=== PATIENT | female | born 1995 | race Caucasian/White ===

== ENCOUNTER 2020-09-19 11:50 | Emergency (ER) | payer BC, OTHER ==
[2020-09-19 12:36] VITALS: BP 117/69; PULSE 84
[2020-09-19] MEDS ORDERED: Sodium Chloride 0.9% 1,000 ML IV ONE (12:36)
[2020-09-19] MEDS ORDERED: Ondansetron 4 MG in Sodium Chloride 0.9% 50 ML IV ONE (12:37)
[2020-09-19] MEDS ORDERED: Morphine 2 MG/ML SYRINGE IVPUSH ONE (12:37)
--- NOTE | 2020-09-19 13:01 | EDM.PDOC ---
ED HPI GENERAL MEDICAL PROBLEM - General Chief Complaint: Gastrointestinal Problem Stated Complaint: GASTRIC ISSUES WITH BYPASS Time Seen by Provider: 09/19/20 12:58 Source of Information: Reports: Patient, Family History Limitations: Reports: No Limitations - History of Present Illness INITIAL COMMENTS - FREE TEXT/NARRATIVE: Patient is an unfortunate 24-year-old female who presents emergency department today with complaint of epigastric mark pain and vomiting. The patient reports that she had gastric bypass in July in [place], she reports that she started having problems with vomiting 1 week ago, she was seen at the hospital in [place] on Sunday of last week was admitted for 4 days had an EGD and had a stricture expanded via balloon, patient reports she got to feeling better was tolerating p.o. fluids well days ago and then yesterday she started vomiting again and has been unable to keep any food or fluids down. This concerned the patient and family as they were here on vacation they called her surgeon who recommended they come to the emergency department for further evaluation. The patient does have a flight to [facility] tomorrow to see her surgeon is had no fever no chills no diarrhea no hematemesis no hematochezia no dysuria no frequency no urgency Abdomen Pain Score (Numeric/FACES): 8 - Related Data Allergies Allergy/AdvReac Type Severity Reaction Status Date / Time No Known Allergies Allergy Verified 11/06/18 09:21 Home Meds: Home Meds Amoxicillin 500 mg PO TID 11/06/18 [History] Past Medical History - Past Health History Medical/Surgical History: Denies Medical/Surgical History Psychiatric History: Reports: Anxiety Endocrine/Metabolic History: Reports: Obesity/BMI 30+ - Past Surgical History Head Surgeries/Procedures: Reports: None GI Surgical History: Reports: Other (See Below) Other GI Surgeries/Procedures: Gastric sleeve 07/2020. Social & Family History - Family History Family Medical History: No Pertinent Family History - Tobacco Use Tobacco Use Status *Q: Never Tobacco User - Caffeine Use Caffeine Use: Reports: None - Recreational Drug Use Recreational Drug Use: No ED ROS GENERAL - Review of Systems Review Of Systems: See Below Constitutional: Denies: Fever, Chills GI/Abdominal: Reports: Abdominal Pain, Nausea, Vomiting. Denies: Decreased Appetite, Hematemesis, Hematochezia ED EXAM, GI/ABD - Physical Exam Exam: See Below Exam Limited By: No Limitations General Appearance: Alert, WD/WN, Mild Distress Ears: Normal External Exam, Normal Canal, Hearing Grossly Normal, Normal TMs Throat/Mouth: Normal Inspection, Normal Lips, Normal Teeth, Normal Gums, Normal Oropharynx, Normal Voice, No Airway Compromise Head: Atraumatic, Normocephalic Neck: Normal Inspection, Supple, Non-Tender, Full Range of Motion Respiratory/Chest: No Respiratory Distress, Lungs Clear, Normal Breath Sounds, No Accessory Muscle Use, Chest Non-Tender Cardiovascular: Normal Peripheral Pulses, Regular Rate, Rhythm, No Edema, No Gallop, No JVD, No Murmur, No Rub GI/Abdominal Exam: Normal Bowel Sounds, Soft, No Distention, Tender (Mild e pigastric) Back Exam: Normal Inspection, Full Range of Motion, NT Extremities: Normal Inspection, Normal Range of Motion, Non-Tender, Normal Capillary Refill, No Pedal Edema Neurological: Alert, Oriented Skin Exam: Warm, Dry, No Rash Course - Vital Signs Text/Narrative:: The patient is using CAT scan at this time, the patient reports that she feels better she has had no further episodes of vomiting, the patient will be discharged home and encouraged to follow-up with her surgeon tomorrow in [facility] as scheduled Last Recorded V/S: Last Vital Signs Temp 97.6 F 09/19/20 12:23 Pulse 84 09/19/20 12:23 Resp 18 09/19/20 12:23 BP 117/69 09/19/20 12:23 Pulse Ox 96 09/19/20 12:23 - Orders/Labs/Meds Labs: Laboratory Tests 09/19/20 09/19/20 09/19/20 Range/Units 12:41 12:41 14:26 WBC 6.0 (5.0-10.0) 10^3/uL RBC 5.22 (4.2-5.4) 10^6/uL Hgb 15.6 (12.0-16.0) g/dL Hct 44.3 (37.0-47.0) % MCV 84.9 (80-100) fL MCH 29.9 (27.0-34.0) pg MCHC 35.2 H (33.0-35.0) g/dL Plt Count 161 (150-450) 10^3/uL Neut % (Auto) 69.6 (42.2-75.2) % Lymph % (Auto) 14.1 L (20.5-50.1) % [place] % (Auto) 12.9 H (2-8) % Eos % (Auto) 3.2 H (1.0-3.0) % Baso % (Auto) 0.2 (0.0-1.0) % Sodium 143 (136-145) mmol/L Potassium 3.4 L (3.5-5.1) mmol/L Chloride 103 (98-107) mmol/L Carbon Dioxide 19 L (21-32) mmol/L Anion Gap 24.4 H (7-13) mEq/L BUN 1 L (7-18) mg/dL Creatinine 0.67 (0.55-1.02) mg/dL Est Cr Clr Drug Dosing 108.95 mL/min Estimated GFR (MDRD) > 60 BUN/Creatinine Ratio 1.5 (No establ ref range) Glucose 80 (70-99) mg/dL Calcium 9.6 (8.5-10.1) mg/dL Total Bilirubin 0.5 (0.2-1.0) mg/dL AST 23 (15-37) U/L ALT 50 (14-59) U/L Alkaline Phosphatase 150 H (46-116) U/L Total Protein 8.3 H (6.4-8.2) g/dL Albumin 4.2 (3.4-5.0) g/dL Globulin 4.1 Albumin/Globulin Ratio 1.0 Urine Color Yellow (YELLOW) Urine Appearance Slightly cloudy (CLEAR) Urine pH 6.0 (5.0-9.0) Ur Specific [place] >= 1.030 (1.005-1.030) Urine Protein 100 H (NEGATIVE) Urine Glucose (UA) Negative (NEGATIVE) Urine Ketones >=160 H (NEGATIVE) Urine Occult Blood Small H (NEGATIVE) Urine Nitrite Negative (NEGATIVE) Urine Bilirubin Small H (NEGATIVE) Urine Urobilinogen 0.2 (0.2-1.0) mg/dL Ur Leukocyte Esterase Negative (NEGATIVE) Urine RBC 0-5 /HPF Urine WBC 0-5 (0-5/HPF) /HPF Ur Epithelial Cells Moderate H (NOT SEEN) /HPF Amorphous Sediment Few (NOT SEEN) /HPF Urine Bacteria Few (0-FEW/HPF) /HPF Urine Mucus Moderate H (NOT SEEN) /LPF Meds: Medications Discontinued Medications Generic Name Dose Route Start Last Admin Trade Name Jos PRN Reason Stop Dose Admin Sodium Chloride 1,000 mls @ 999 mls/hr 09/19/20 12:36 09/19/20 12:49 Normal Saline IV 09/19/20 13:36 999 mls/hr .BOLUS ONE Administration Ondansetron HCl 4 mg/ Sodium 52 mls @ 200 mls/hr 09/19/20 12:37 09/19/20 12:49 Chloride IV 09/19/20 12:53 200 mls/hr ONETIME ONE Administration Morphine Sulfate 2 mg 09/19/20 12:37 09/19/20 12:49 Morphine 2 Mg/Ml Syringe IVPUSH 09/19/20 12:38 2 mg ONETIME ONE Administration Sucralfate 1 gm 09/19/20 13:52 09/19/20 14:30 Sucralfate Suspension 1 Gm/10 Ml Cup PO 09/19/20 13:53 1 gm ONETIME ONE Administration Departure - Departure Time of Disposition: 15:12 Disposition: Home, Self-Care 01 Clinical Impression: Vomiting - Discharge Information *PRESCRIPTION DRUG MONITORING PROGRAM REVIEWED*: No *COPY OF PRESCRIPTION DRUG MONITORING REPORT IN PATIENT GOMEZ: No Instructions: Dehydration, Adult, [id number], Nausea and Vomiting, Adult Forms: ED Department Discharge Additional Instructions: Home, rest, adequate fluids, use your prescription of antiemetics as needed, follow-up with your surgeon tomorrow as directed, return to the emergency department for any worsening condition Sepsis Event Note (ED) - Evaluation Sepsis Screening Result: No Definite Risk - Focused Exam Vital Signs: Vital Signs Temp Pulse Resp BP Pulse Ox 09/19/20 12:23 97.6 F 84 18 117/69 96
[2020-09-19 13:07] LABS: ANION GAP 24.4 mEq/L (7-13); CHLORIDE,CL 103 mmol/L (98-107); SODIUM,NA 143 mmol/L (136-145)
[2020-09-19] MEDS ORDERED: Sucralfate Suspension 1 GM/10 ML Cup PO ONE (13:52)
== END 2020-09-19 15:33 | disposition home or self-care (01) ==
LOC: DL.ED 11:50
DX: R11.2 Nausea with vomiting, unspecified (principal); E66.9 Obesity, unspecified; Z68.34 Body mass index [BMI] 34.0-34.9, adult
CPT/HCPCS: 36415; 80053; 81001; 85025; 96374; 96375; 99284; A9270; J2270; J2405; J7030